=== PATIENT | female | born 1970 | race Caucasian/White ===

== ENCOUNTER → 2023-02-27 14:24 | Outpatient (BNVA) | payer OTHER, SELFPAY | PROVIDERS: PCP Family Medicine; Visit Provider Nurse Practitioner Family ==

== ENCOUNTER → 2023-04-02 15:29 | Outpatient (REF) | payer OTHER, SELFPAY | LOC: HO.SL 15:29 | PROVIDERS: PCP Family Medicine; Visit Provider Nurse Practitioner Family | DX: G47.33 Obstructive sleep apnea (adult) (pediatric) (principal) | CPT/HCPCS: 95806 ==

== ENCOUNTER → 2023-05-08 20:43 | Outpatient (REF) | payer OTHER, SELFPAY | LOC: HO.SL 20:43 | PROVIDERS: PCP Family Medicine; Visit Provider Nurse Practitioner Family | DX: G47.33 Obstructive sleep apnea (adult) (pediatric) (principal); G47.36 Sleep related hypoventilation in conditions classified elsewhere | CPT/HCPCS: 95811 ==

== ENCOUNTER → 2023-05-08 20:55 | Outpatient (BNV) | payer OTHER, SELFPAY | PROVIDERS: PCP Family Medicine; Visit Provider Psychiatry & Neurology Neurology | DX: G47.33 Obstructive sleep apnea (adult) (pediatric) (principal) | CPT/HCPCS: 95811 ==

== ENCOUNTER 2023-05-15 14:39 | Outpatient (AMB) | payer OTHER, SELFPAY ==
--- NOTE | 2023-05-15 14:42 | A.OFFVIS_ITS ---
Intake Vital Signs 05/15/23 14:46 Weight 220 lb 8 oz BP 138/90 H Blood Pressure Location Rt brachial Position Sitting Pulse 60 Pulse Source Pulse Oximeter Pulse Oximetry (%) 100 Oxygen Delivery Method Room Air Intake Visit Reasons: 2m follow up CINDY -Confirmed Intake Note: Pt is here today for CINDY fup Allergies No Known Allergies Allergy (Verified 05/15/23 14:49) HPI HPI Comments History of Present Illness Details 52 y/o female patient presents for follow up of sleep study. The home sleep study result was significant for mild degree of sleep apnea. The AHI was 13/hr and oxygen tameka was 76%. Pt underwent CPAP titration study, trialed on CPAP 4-9cmH2O. The breathing and oxygenation stabilized on all pressure. She reports daytime tiredness and sleepiness, and is on modafinil 200 mg daily. PFS Medical History (Reviewed 05/15/23 @ 14:[address] [facility]3]) Gallbladder & bile duct stone with obstruction Surgical History (Reviewed 05/15/23 @ 14:[address] [facility]3]) H/O: hysterectomy History of appendectomy Previous back surgery Family History (Reviewed 05/15/23 @ 14:[address] [facility]3]) Father Diabetes Brother Marfan syndrome Social History (Updated 02/27/23 @ 14:[address] [facility]3]) Alcohol intake: current Patient Tobacco Use Status: Never used Tobacco Review of Systems Const All systems reviewed & are unremarkable except as noted in HPI and below ENT Reports Normal hearing present Neuro Reports Normal hearing present Physical Exam Vital Signs: Last Vital Signs Pulse 60 05/15/23 14:46 BP 138/90 H 05/15/23 14:46 Pulse Ox 100 05/15/23 14:46 Oxygen Delivery Method Room Air 05/15/23 14:46 Const General: cooperative Nutritional Appearance: obese Orientation/consciousness: patient oriented x3 Neck Neck: Yes full ROM and Yes supple Resp Effort & Inspection: normal respiratory effort and able to speak in complete sentences Neuro General: patient oriented x3, gait normal and moves all extremities Cranial nerves: Yes Bilaterally intact EOM present, Yes Normal facial strength present, Yes Midline tongue present, Yes Symmetric palate elevation present, Yes Normal hearing present, Yes Ability to bilaterally rotate head present and Yes Ability to bilaterally elevate shoulders present Cognition (Neuro): normal cognition Gait exam (Neuro): Normal gait present Motor exam (neuro): 5/5 motor strength present throughout, Pronator motor function not present and no tremor noted Psych Appearance: grossly normal Mental Status: mental status grossly normal Speech and movement: Normal speech and movement present Affect: normal affect Attitude: cooperative Assessment & Plan Assessment & Plan (1) CINDY (obstructive sleep apnea): Comment: Mild degree of sleep apnea. AHI 13/hr but oxygen tameka was 76%. The duration of O2 sat <88% was 24 min. Code(s): G47.33 - Obstructive sleep apnea (adult) (pediatric) Plan Start CPAP at 9cmH2O. Stressed compliance, use CPAP nighlty and more than 4 hours. Continue to practice good sleep hygiene and wt management advised. Coding Level of Care Code Est Pt Level 3 (41116) Diagnoses CINDY (obstructive sleep apnea) G47.33
[2023-05-15 14:46] VITALS: BP 138/90; PULSE 60; O2SAT 100
== END 2023-05-15 15:07 | disposition home or self-care (01) ==
PROVIDERS: Visit Provider Nurse Practitioner Family
DX: G47.33 Obstructive sleep apnea (adult) (pediatric) (principal)
CPT/HCPCS: 99213

== ENCOUNTER → 2023-05-15 14:39 | Outpatient (BNVA) | payer OTHER, SELFPAY | PROVIDERS: Visit Provider Nurse Practitioner Family | DX: G47.33 Obstructive sleep apnea (adult) (pediatric) (principal); R40.0 Somnolence ==